=== PATIENT | female | born 1950 | race Hispanic/Latino ===

== ENCOUNTER 2018-10-10 12:23 | Inpatient (IN) | payer MEDICARE | END 2018-10-17 17:50 | disposition home or self-care (01) | LOC: 2CV 10-13 09:46 → 2BH 10-14 13:14 → 2AH 12:23 | PROC: 4A023N7 Measurement of Cardiac Sampling and Pressure, Left Heart, Percutaneous Approach (ICD-10-PCS; principal; 2018-10-13 09:30) | PROC: 02100Z9 Bypass Coronary Artery, One Artery from Left Internal Mammary, Open Approach (ICD-10-PCS; 2018-10-13 09:30) | PROC: 021009W Bypass Coronary Artery, One Artery from Aorta with Autologous Venous Tissue, Open Approach (ICD-10-PCS; 2018-10-13 09:30) | PROC: 06BQ4ZZ Excision of Left Saphenous Vein, Percutaneous Endoscopic Approach (ICD-10-PCS; 2018-10-13 09:30) | DX: I21.4 Non-ST elevation (NSTEMI) myocardial infarction (principal); I50.23 Acute on chronic systolic (congestive) heart failure; D62 Acute posthemorrhagic anemia; I25.10 Atherosclerotic heart disease of native coronary artery without angina pectoris ==

== ENCOUNTER 2018-10-19 00:22 | Inpatient (IN) | payer MEDICARE ==
[~2018-10-19] VITALS: Ht 160 cm; Wt 67.1 kg
[~2018-10-19 00:22] MED LIST: ASPI-1005 PO; ATOR20TA65 PO; CARV6.2579 PO; CLOP75TA14 PO; FERR-63 PO; FURO40TA7 PO
[2018-10-19 01:10] LABS: BASOPHILS % (AUTO) 0.7 % (0.0-5.0); HEMATOCRIT 27.4 % (36-48); LYMPHOCYTES % (AUTO) 15.2 % (21.0-51.0); MEAN CORPUSCULAR HEMOGLOBIN 31.4 pg (27.0-33.0); MEAN CORPUSCULAR HGB CONC 33.4 g/dL (32.0-36.0); MEAN CORPUSCULAR VOLUME 93.9 fL (79-99); MONOCYTES % (AUTO) 11.4 % (3.0-13.0); NEUTROPHILS % (AUTO) 69.7 % (40.0-77.0); NUCLEATED RED BLOOD CELLS 0.1 % (0.0-0.19); PLATELET COUNT (AUTO) 155 K/uL (130-400); RED BLOOD CELL COUNT(AUTO) 2.92 MIL/uL (4.00-5.50); RED CELL DISTRIBUTION WIDTH 12.6 % (11.0-15.5); WHITE BLOOD COUNT (AUTO) 4.2 K/uL (4.8-10.8)
[2018-10-19 01:18] LABS: CREATININE 0.7 mg/dL (0.5-1.5); POTASSIUM 3.1 mmol/L (3.5-5.1)
[2018-10-19 01:24] LABS: ALBUMIN 2.8 g/dL (3.5-5.0); BILIRUBIN,TOTAL 1.2 mg/dL (0.2-1.0); TOTAL PROTEIN, SERUM 6.6 g/dL (6.0-8.3)
[2018-10-19 01:28] LABS: B-TYPE NATRIURETIC PEPTIDE 847 pg/mL (0-100)
[2018-10-19] MEDS ORDERED: IOHEXOL-350 75 ML VIAL IV ONE (02:24)
[2018-10-19] MEDS ORDERED: ZOSYN 3.375GM+NS 50ML 50 ML IV ONE (04:03)
[2018-10-19] MEDS ORDERED: SODIUM CHLORIDE 0.9% 50 ML IV ONE (04:03)
[2018-10-19] MEDS ORDERED: IPRATROPIUM/ALBUTEROL SULFATE 3 ML SOLUTION IH ONE (04:04)
[2018-10-19] MEDS ORDERED: SODIUM CHLORIDE 0.9% 1000ML 1,000 ML IV SCH (05:02)
[2018-10-19] MEDS ORDERED: ACETAMINOPHEN 325 MG TAB PO PRN (05:15)
[2018-10-19] MEDS ORDERED: ONDANSETRON HCL 4 MG/2 ML VIAL IV PRN (05:15)
[2018-10-19] MEDS ORDERED: LEVOFLOXACIN 500 MG/D5W 100 ML 100 ML ONE (05:29)
[2018-10-19] MEDS ORDERED: SODIUM CHLORIDE 0.9% 1000ML 1,000 ML IV ONE (05:29)
[2018-10-19] MEDS: LEVOFLOXACIN 500 MG/D5W 100 ML 100 ML IV SCH (05:30)
[2018-10-19] MEDS ORDERED: ZOSYN 3.375GM+NS 50ML 50 ML IV SCH (06:00)
[2018-10-19] MEDS ORDERED: POTASSIUM CHLORIDE 20MEQ/100ML 100 ML IV PRN (06:15)
[2018-10-19] MEDS ORDERED: LIDOCAINE HCL-MPF 1% 2ML VIAL IVP PRN (06:15)
[2018-10-19] MEDS ORDERED: POTASSIUM CHLORIDE 10% ELIXIR 20 MEQ/15 ML UDCUP PO PRN (06:15)
[2018-10-19] MEDS ORDERED: MAGNESIUM 2GM PREMIX 50ML 50 ML IV PRN (06:15)
[2018-10-19 06:20] VITALS: BP 121/78
[2018-10-19] MEDS: IPRATROPIUM/ALBUTEROL SULFATE 3 ML SOLUTION IH SCH ×5 (06:56→22:37)
[2018-10-19 07:00] VITALS: BP 146/72
[2018-10-19] MEDS: PANTOPRAZOLE SODIUM 40 MG TABLET.DR PO SCH (10:13)
[2018-10-19] MEDS: ENOXAPARIN SODIUM 30 MG/0.3 ML SQ SCH (10:14)
[2018-10-19 11:00] VITALS: BP 123/63
[2018-10-19] MEDS: POTASSIUM CHLORIDE 20 MEQ ERTAB PO PRN ×2 (11:30→15:00)
[2018-10-19] MEDS: ZOSYN 3.375GM+NS 50ML 50 ML IV SCH ×2 (12:55→21:37)
[2018-10-19] MEDS: HYDROCODONE/ACETAMINOPHEN 5/325 MG TAB PO PRN ×2 (15:02→21:39)
[2018-10-19] MEDS: FUROSEMIDE 10 MG/ML 2ML VIAL IV SCH (15:24)
[2018-10-19 16:00] VITALS: BP 130/66
--- NOTE | 2018-10-19 17:36 | NUR ---
D/C PLAN CM spoke to pt regarding d/c planning. pt lives with dtr. states dtr has been assisting in care. Pt is readmission less than 3 days. Cm offered short term snf/rehab as possible dc option. Pt declined. States she plans on staying with her brother who has handicapped equipped bathroom. Plan to home. Dtr asked cm about home health. explained that PCP can arrange from office at first visit. States pt has appointment next. No other needs verbalized. CM to f/u Addendum: 10/19/18 at 1740 by KASEY ROQUE Amended: Links added.
[2018-10-19 19:00] VITALS: BP 127/61
[2018-10-19 21:34] VITALS: BP 121/68
[2018-10-19] MEDS: ATORVASTATIN CALCIUM 20 MG TABLET PO SCH (21:38)
[2018-10-19] MEDS: CARVEDILOL 6.25 MG TABLET PO SCH (21:38)
[2018-10-20] VITALS (14 sets, daily range): BP systolic 97–124; BP diastolic 54–66
[2018-10-20] MEDS: IPRATROPIUM/ALBUTEROL SULFATE 3 ML SOLUTION IH SCH ×6 (01:39→22:11)
[2018-10-20] MEDS: LEVOFLOXACIN 500 MG/D5W 100 ML 100 ML IV SCH (05:21)
[2018-10-20 06:32] LABS: BASOPHILS % (AUTO) 0.8 % (0.0-5.0); EOSINOPHILS % (AUTO) 4.5 % (0.0-8.0); HEMATOCRIT 26.7 % (36-48); LYMPHOCYTES % (AUTO) 18.7 % (21.0-51.0); MEAN CORPUSCULAR HEMOGLOBIN 31.7 pg (27.0-33.0); MEAN CORPUSCULAR HGB CONC 33.3 g/dL (32.0-36.0); MEAN CORPUSCULAR VOLUME 95.3 fL (79-99); MONOCYTES % (AUTO) 9.8 % (3.0-13.0); NEUTROPHILS % (AUTO) 66.2 % (40.0-77.0); NUCLEATED RED BLOOD CELLS 0.1 % (0.0-0.19); PLATELET COUNT (AUTO) 179 K/uL (130-400); RED CELL DISTRIBUTION WIDTH 13.5 % (11.0-15.5); WHITE BLOOD COUNT (AUTO) 2.9 K/uL (4.8-10.8)
[2018-10-20] MEDS: ZOSYN 3.375GM+NS 50ML 50 ML IV SCH ×3 (06:35→22:25)
[2018-10-20 06:44] LABS: INR 0.99 (0.85-1.15); PARTIAL THROMBOPLASTIN TIME 28.3 SEC (26.3-35.5); PROTHROMBIN TIME 10.4 SEC (9.6-11.6)
[2018-10-20 07:02] LABS: BASOPHILS % (MANUAL) 3 % (0-2); EOSINOPHILS % (MANUAL) 7 % (1-6); LYMPHOCYTES % (MANUAL) 19 % (22-44); MAN.DIFF COMMENT-IMPRESSION MANUAL DIFFERENTIAL; MONOCYTES % (MANUAL) 3 % (2-9); PLATELET MORPHOLOGY COMMENT ADEQUATE; SEGMENTED NEUTROPHILS % 68 % (40-70)
[2018-10-20 07:30] LABS: ALBUMIN 2.8 g/dL (3.5-5.0); BILIRUBIN,TOTAL 1.2 mg/dL (0.2-1.0); CREATININE 0.8 mg/dL (0.5-1.5); POTASSIUM 3.6 mmol/L (3.5-5.1); TOTAL PROTEIN, SERUM 6.4 g/dL (6.0-8.3)
[2018-10-20] MEDS: ENOXAPARIN SODIUM 30 MG/0.3 ML SQ SCH (09:00)
[2018-10-20] MEDS ORDERED: FUROSEMIDE 10 MG/ML 2ML VIAL IV SCH (09:00)
--- NOTE | 2018-10-20 09:00 | NUR ---
[facility]OV[place]OX HELD DUE TO PROCEDURE TODAY. WILL CONTINUE TOMORROW.
[2018-10-20] MEDS: ASPIRIN 81MG TAB.CHEW PO SCH (09:59)
[2018-10-20] MEDS: PANTOPRAZOLE SODIUM 40 MG TABLET.DR PO SCH (09:59)
[2018-10-20] MEDS: CARVEDILOL 6.25 MG TABLET PO SCH ×2 (10:00→22:24)
[2018-10-20] MEDS: FUROSEMIDE 10 MG/ML 2ML VIAL IV SCH (10:00)
[2018-10-20] MEDS: FERROUS SULFATE 325 MG TABLET.DR PO SCH (10:01)
--- NOTE | 2018-10-20 11:00 | NUR ---
PATIENT TAKEN DOWNSTAIRS FOR THORACENTESIS. AWAKE AND ALERT, VOCIES NO COMPLAINTS.
[2018-10-20] MEDS ORDERED: LIDOCAINE HCL 1% 20 ML VIAL ONE (11:18)
--- NOTE | 2018-10-20 11:58 | NUR ---
U/S GD RT THORACENTESIS PROCEDURE PERFORMED BY DR María BEATTY. PUNCTURE SITE RT POSTERIOR BACK AND PATIENT TOLERATED PROCEDURE WELL. TOTAL REMOVED 600ML OF BLOOD TINGED FLUID. END OF PROCEDURE AT 1140. CATHETER REMOVED AND DRESSING APPLIED. NO BLEEDING NOTED. REPORT GIVEN TO Jaz MARTINEZ LVN AND PATIENT TRANSPORTED TO [facility] VIA W/C AT 1155.
--- NOTE | 2018-10-20 12:00 | NUR ---
PATIENT RETURNED FROM THORACENTESIS. AWAKE AND ALERT, RIGHT BACK DRESSING CLEAN DRY AND INTACT. NO BLEEDING NOTED. VOICES NO COMPLAINTS.
--- NOTE | 2018-10-20 12:08 | NUR ---
LEFT MESSAGE ON DR. CASANOVA CELL PHONE TO CALL BACK REGARDING CONSULT. PHONE [phone].
[2018-10-20] MEDS: HYDROCODONE/ACETAMINOPHEN 5/325 MG TAB PO PRN (13:14)
[2018-10-20] MEDS: CLOPIDOGREL BISULFATE 75 MG TAB PO SCH (13:17)
--- NOTE | 2018-10-20 16:05 | NUR ---
CALL FROM VAUGHN TERRY RN FOR DR. POST T/C FROM [facility], ONLY INQUIRING THE AMOUNT REMOVED FROM THORA., INFORMED IT WAS 600 ML.
[2018-10-20] MEDS ORDERED: GUAIFENESIN SUGAR-FREE 100 MG/5 ML UDCUP PO PRN (19:15)
[2018-10-20] MEDS ORDERED: GUAIFENESIN SUGAR-FREE 100 MG/5 ML UDCUP ONE (19:16)
[2018-10-20] MEDS: ATORVASTATIN CALCIUM 20 MG TABLET PO SCH (22:24)
[2018-10-21] MEDS: IPRATROPIUM/ALBUTEROL SULFATE 3 ML SOLUTION IH SCH ×4 (02:16→13:25)
[2018-10-21 03:50] VITALS: BP 117/66
[2018-10-21 04:41] LABS: HEMATOCRIT 27.4 % (36-48); MEAN CORPUSCULAR HEMOGLOBIN 31.6 pg (27.0-33.0); MEAN CORPUSCULAR HGB CONC 33.5 g/dL (32.0-36.0); MEAN CORPUSCULAR VOLUME 94.5 fL (79-99); PLATELET COUNT (AUTO) 199 K/uL (130-400); RED BLOOD CELL COUNT(AUTO) 2.89 MIL/uL (4.00-5.50); RED CELL DISTRIBUTION WIDTH 13.6 % (11.0-15.5); WHITE BLOOD COUNT (AUTO) 3.7 K/uL (4.8-10.8)
[2018-10-21 04:50] LABS: CREATININE 0.7 mg/dL (0.5-1.5); POTASSIUM 3.2 mmol/L (3.5-5.1)
[2018-10-21] MEDS: LEVOFLOXACIN 500 MG/D5W 100 ML 100 ML IV SCH (05:26)
[2018-10-21] MEDS: ZOSYN 3.375GM+NS 50ML 50 ML IV SCH ×2 (05:26→13:00)
[2018-10-21] MEDS: POTASSIUM CHLORIDE 20 MEQ ERTAB PO PRN ×2 (06:30→08:54)
[2018-10-21 07:50] VITALS: BP 125/67
[2018-10-21] MEDS: FERROUS SULFATE 325 MG TABLET.DR PO SCH (08:33)
[2018-10-21] MEDS: CARVEDILOL 6.25 MG TABLET PO SCH (08:35)
[2018-10-21] MEDS: PANTOPRAZOLE SODIUM 40 MG TABLET.DR PO SCH (08:35)
[2018-10-21] MEDS: ASPIRIN 81MG TAB.CHEW PO SCH (08:35)
[2018-10-21] MEDS: CLOPIDOGREL BISULFATE 75 MG TAB PO SCH (08:35)
[2018-10-21] MEDS: FUROSEMIDE 10 MG/ML 2ML VIAL IV SCH (08:35)
[2018-10-21] MEDS: ENOXAPARIN SODIUM 30 MG/0.3 ML SQ SCH (08:36)
[2018-10-21 11:31] VITALS: BP 107/54
[2018-10-21] MEDS ORDERED: POTASSIUM CHLORIDE 10% ELIXIR 20 MEQ/15 ML UDCUP PO ONE ×2 (12:35→14:00)
[2018-10-21 16:15] VITALS: BP 110/68
--- NOTE | 2018-10-21 16:50 | NUR ---
DISCHARGE INSTRUCTIONS REVIEWED DISCHARGE INSTRUCTIONS WITH PT AND FAMILY MEMBER, REMINDED OF APPT WITH ON Oct AND GAVE A LIST OF LOCAL PRIMARY MDS, FAMILY MEMBER STATES THEY LIVE IN [facility] AND HAVE A PROVIDER IN MIND. ALSO, REMOVED BANDAID FROM RIGHT SIDE OF NECK,STATES HAS TUBES THERE WHEN SHE HAD SURGERY, AREA IS CLEAN AND DRY, FEELS SORE TO SITE, BRUISING IS ALSO NOTED AND AREA IS ELEVATED. STATES HAS HAD SINCE AFTER SURGERY. CLEANSED AREA WITH SALINE AND PLACED ANOTHER DRESSING.
== END 2018-10-21 17:05 | disposition home or self-care (01) | DRG 291 ==
LOC: EDH 00:22 → EDHIP 04:58 → 3CH 05:58 → 3DH 05:59
PROVIDERS: ADMIT Hospitalist; ATTEND Hospitalist
PROC: 0W993ZZ Drainage of Right Pleural Cavity, Percutaneous Approach (ICD-10-PCS; principal; 2018-10-20)
DX: I50.21 Acute systolic (congestive) heart failure (principal); J18.1 Lobar pneumonia, unspecified organism; E44.0 Moderate protein-calorie malnutrition; J91.8 Pleural effusion in other conditions classified elsewhere; E87.6 Hypokalemia; D64.9 Anemia, unspecified; I25.10 Atherosclerotic heart disease of native coronary artery without angina pectoris; K21.9 Gastro-esophageal reflux disease without esophagitis; Z90.710 Acquired absence of both cervix and uterus; Z95.1 Presence of aortocoronary bypass graft; Z68.26 Body mass index [BMI] 26.0-26.9, adult; Z82.3 Family history of stroke; Z83.3 Family history of diabetes mellitus; Z82.49 Family history of ischemic heart disease and other diseases of the circulatory system; Z83.6 Family history of other diseases of the respiratory system; Z79.82 Long term (current) use of aspirin; Z79.02 Long term (current) use of antithrombotics/antiplatelets; Z79.899 Other long term (current) drug therapy
CPT/HCPCS: 32555; 36415; 71045; 71046; 71275; 80048; 80053; 83735; 83880; 84132; 85025; 85027; 85610; 85730; 87040; 87804; 93005; 94640; 94664; G0378; J1650; J1940; J1956; J2543; J3475; J7030; Q9967